=== PATIENT | female | born 1990 | race Hispanic/Latino ===

== ENCOUNTER 2017-12-24 20:42 | Emergency (ER) | payer OTHER, SELFPAY ==
[2017-12-24] MEDS ORDERED: Ketorolac Tromethamine 30 MG/ML VIAL ONE (23:05)
[2017-12-24] MEDS ORDERED: diphenhydrAMINE 50 MG/ML VIAL ONE (23:05)
[2017-12-24] MEDS ORDERED: Metoclopramide HCl 10 MG/2 ML VIAL ONE (23:05)
[2017-12-25] MEDS ORDERED: Lidocaine 1% w/Epinephrine 1:100K 20 ML VIAL ONE (00:29)
[2017-12-25] MEDS ORDERED: HYDROcodone/Acetaminophen 10/325 mg Tablet ONE (00:30)
== END 2017-12-25 00:37 | disposition home or self-care (01) ==
LOC: ERS 20:42
DX: R51 Headache (principal)
CPT/HCPCS: 96365; 96375; J1200; J1885; J2001; J2765

== ENCOUNTER 2019-05-25 10:00 | Inpatient (IN) | payer OTHER, SELFPAY ==
[2019-05-25] MEDS ORDERED: hydrALAZINE 20 MG/ML VIAL SLOW IVP PRN (11:22)
[2019-05-25] MEDS ORDERED: Promethazine HCl 25 MG/ML VIAL IM PRN (11:22)
[2019-05-25] MEDS ORDERED: Ondansetron PF 4 MG/2 ML Vial IVP PRN (11:22)
--- NOTE | 2019-05-25 11:22 | PDOC.FPROB ---
FMR OB H&P: HPI - History of Present Illness Chief Complaint: Iron Infusion History of Present Illness: Pt is a 28 yo F @ 31.2 wks by LMP with anemia of who presents for iron transfusion. She says she has had no vaginal bleeding, loss of fluid, or contractions. She endorses good movement. Primary Care Physician: KATIE OLIVAS FMR OB H&P: Current - Care : 3 Para: 2001 Gestational age: 31.2 wks Due date: 07/25/19 Dating Criteria: LMP - OB Labs Blood type: unknown RH: unknown Antibody Screen: unknown HIV: unknown RPR: unknown HepBsAg: unknown Quad screen: unknown Gonorrhea: unknown Chlamydia: unknown GBS: unknown FMR OB H&P: History - Past Medical History PMH: None - OB History OB History: Anemia of Csection with second due to concerns for baby. - Surgical History Sx History: None - Social History Social History: No history of asthma or jaundice in family. No other family medical problems. - Family History Family History: No tobacco, alcohol, or drug use. FMR OB H&P: Medications - Current Home Medications: Medication Instructions Recorded Confirmed Type Cia639/Iron Fum/Folic 1 each PO DAILY 04/05/15 05/25/19 History [ Tablet] Allergies/Adverse Reactions: Allergies Allergy/AdvReac Type Severity Reaction Status Date / Time No Known Allergies Allergy Verified 05/25/19 11:28 FMR OB H&P: ROS - Review of Systems General: denies: fever/chills Eyes: denies: vision changes ENT: denies: nasal congestion, rhinorrhea Cardiovascular: denies: chest pain Respiratory: denies: congestion, shortness of breath Gastrointestinal: denies: abdominal pain, nausea, vomiting, diarrhea Genitourinary (Female): denies: dysuria, vaginal discharge, vaginal pain, vaginal bleeding, contractions Musculoskeletal: denies: pain, tenderness Neurologic: reports: headache (Headaches are full head with pain in the neck. She was seen in pre-[facility] clinic with headache and they told her to take Tylenol. She had headache before .). denies: numbness, weakness Integumentary: denies: itching, rash Hematologic/Lymphatic: denies: prolonged or excessive bleeding, enlarged lymph nodes FMR OB H&P: Vital Signs - Maternal Vital signs: BP: 84/59, HR: 80, T: 98.1 - Heart Tones Baseline: 130 Variability: moderate Acceleration: present Deceleration: absent Category: category 1 FMR OB H&P: Physical Exam - Physical Exam General: NAD HEENT: normocephalic and atraumatic, PERRLA, MMM, conjunctiva clear, oropharynx clear, good dention Neck: supple, trachea midline, no LAD Heart: RRR, normal S1/S2 General: CTAB, no respiratory distress, good air movement, no rales/rhonchi, no wheezing Abdomen: soft, gravid, non-tender, bowel sound present Musculoskeletal: pulses present, FROM in all four extremities Neurological: cranial nerves II through XII intact Skin: no rash Lymphatic: no unusual bruising or bleeding FMR OB H&P: A/P - Problem List (1) Anemia affecting in third trimester Current Visit: Yes Status: Acute Code(s): O99.013 - ANEMIA COMPLICATING , THIRD TRIMESTER (2) Intrauterine Current Visit: No Status: Acute Code(s): Z33.1 - STATE, INCIDENTAL Disposition: Pt is a 28 yo F @ 31.2 wks by LMP with anemia of who presents for iron transfusion. 1. Anemia of * Unable to obtain records unsure of what her last H&H was * Will transfuse iron per protocol * Will give benadryl if needed for transfusion reaction 2. Intrauterine 31.2 wks * Will keep her on monitoring during transfusion Dispo: Pending transfusion Discussion: Date/Time: 05/25/19 1118 This H&P was discussed with [] and [] who agree with the above documentation and plan. Addendum - Attending - Attending Attestation Date/Time: 05/25/19 1255 I personally evaluated the patient and discussed the management with Dr. Swanson I agree with the History, Examination, Assessment and Plan documented above with any addition or exceptions noted below - 28 yo @31.2 weeks here for iron transfusion. Has anemia of unresponsive to oral iron. (+) FM. PMH/PSH/All/Meds reviewed and agree with resident's documentation. Afebrile VSS Exam repeated by me and agree with resident's documentation. A/P: 1 ) IUP @ 31.2 weeks with anemia of - start iron transfusion. Plan to d/ c home after infusion, Cat 1 FHTs
[2019-05-25 11:27] VITALS: BMI 19.9
[2019-05-25] MEDS ORDERED: diphenhydrAMINE 50 MG/ML VIAL IVP SCH (11:30)
[2019-05-25] MEDS ORDERED: Iron, Sodium Ferric Gluconate 250 MG in Sodium Chloride 0.9% 250 ML 250 ML IVPB SCH (11:45)
[2019-05-25] MEDS ORDERED: Acetaminophen 500 MG TAB PO SCH (12:00)
[2019-05-25 12:42] LABS: Hemoglobin 8.4 g/dL (12.0-16.0)
[2019-05-25] MEDS ORDERED: Iron Sucrose Complex 500 MG in Sodium Chloride 0.9% 250 ML 250 ML IVPB SCH (13:30)
[2019-05-26] MEDS ORDERED: Prenatal Vitamin 1 TAB PO SCH (09:00)
== END 2019-05-25 18:20 | disposition home or self-care (01) | DRG 833 ==
LOC: EDSTATUS 10:00 → L&D 10:22
PROVIDERS: ADMIT Family Medicine; ATTEND Family Medicine
DX: O99.013 Anemia complicating pregnancy, third trimester (principal); D64.9 Anemia, unspecified; Z3A.31 31 weeks gestation of pregnancy
CPT/HCPCS: 36415; 85014; 85018; 96365; 96366; 99283; J2916; J7050

== ENCOUNTER 2019-07-25 11:32 | Inpatient (IN) | payer OTHER, SELFPAY ==
[2019-07-25] MEDS ORDERED: Lidocaine 1% (PF) 30 ML VIAL SC PRN (12:01)
[2019-07-25] MEDS ORDERED: NS / Oxytocin 40 units/1000ml 1,000 ML IV PRN (12:01)
[2019-07-25] MEDS ORDERED: Promethazine HCl 25 MG/ML VIAL IM PRN (12:01)
[2019-07-25] MEDS ORDERED: Carboprost 250 MCG/ML AMP IM PRN (12:01)
[2019-07-25] MEDS ORDERED: Ondansetron PF 4 MG/2 ML Vial IVP PRN ×2 (12:01→16:42)
[2019-07-25] MEDS ORDERED: Butorphanol Tartrate 1 MG/ML VIAL SLOW IVP PRN (12:01)
[2019-07-25] MEDS ORDERED: hydrALAZINE 20 MG/ML VIAL SLOW IVP PRN ×2 (12:01→16:42)
[2019-07-25] MEDS ORDERED: Misoprostol 200 MCG TAB PR PRN (12:01)
[2019-07-25] MEDS ORDERED: Ibuprofen 800 MG TAB PO PRN (12:01)
[2019-07-25] MEDS ORDERED: Methylergonovine 0.2 MG/ML VIAL IM PRN ×2 (12:01→16:42)
[2019-07-25] MEDS ORDERED: NS w/ Oxytocin 10 units 500 ML IV SCH (12:15)
--- NOTE | 2019-07-25 12:18 | PDOC.FPROB ---
FMR OB H&P: HPI - History of Present Illness Chief Complaint: contractions Indentification: 28yo History of Present Illness: Presented to L&D for contractions. Denies loss of fluid, vaginal bleeding or decreased movement. 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 - Surgical History Sx History: - Social History Social History: Denies - Family History Family History: Denies FMR OB H&P: Medications - Current Home Medications: Medication Instructions Recorded Confirmed Type [id number]/Iron Fum/Folic 1 each PO DAILY 04/05/15 05/25/19 History [ Tablet] Allergies/Adverse Reactions: Allergies Allergy/AdvReac Type Severity Reaction Status Date / Time No Known Allergies Allergy Verified 05/25/19 11:28 FMR OB H&P: ROS - Review of Systems General: denies: fever/chills, weight/appetite/sleep changes Eyes: denies: eye pain, vision changes ENT: denies: nasal congestion, rhinorrhea Cardiovascular: denies: chest pain, palpitation, edema Respiratory: denies: cough, congestion Gastrointestinal: reports: nausea. denies: abdominal pain, vomiting, diarrhea, constipation, bright red blood Genitourinary (Female): reports: contractions, vaginal pressure. denies: dysuria, hematuria, vaginal discharge, vaginal pain, vaginal bleeding Musculoskeletal: denies: pain, stiffness Neurologic: denies: numbness, syncope, seizures Integumentary: denies: itching, rash Hematologic/Lymphatic: denies: prolonged or excessive bleeding, enlarged lymph nodes FMR OB H&P: Vital Signs - Heart Tones Baseline: 140 Variability: moderate Acceleration: present Deceleration: absent Category: category 1 [place] contractions every: 4-5 FMR OB H&P: Physical Exam - Physical Exam General: NAD HEENT: normocephalic and atraumatic, EOMI, MMM, grossly normal vision, grossly normal hearing Neck: supple, trachea midline Breast: symmetric Heart: RRR, normal S1/S2, no murmurs/rubs/gallops General: CTAB, no respiratory distress, good air movement, no rales/rhonchi, no wheezing Abdomen: soft, gravid Musculoskeletal: normal gait and station Neurological: cranial nerves II through XII intact Skin: no rash, good tugor Lymphatic: no unusual bruising or bleeding, no purpura Psychiatric: intact recent and remote memory, good judgement and insight, normal mood and affect - Pelvic Exam SVE: Per RN: Presentation: Cephalic FMR OB H&P: A/P - Problem List (1) Encounter for trial of labor Current Visit: Yes Status: Acute Code(s): [id number] - (2) Intrauterine Current Visit: No Status: Acute Code(s): Z33.1 - STATE, INCIDENTAL Discussion: Date/Time: 07/25/19 1215 TOLAC - 28yo @ 39.2wks EGA. - Presented to L&D at 8cm with contractions. - Patient in active labor. Will admit for delivery - Discussed pain management options, including epidural, patient elected for no epidural - IV medications only. - H/o PPH. Will monitor closely for bleeding after delivery. No PMH of HTN or asthma. - GBS negative. This H&P was discussed with Dr. Smith who agree with the above documentation and plan. Signature: Nasir ELIZONDO PGY1 Addendum - Attending - Attending Attestation Date/Time: 07/25/19 1330 I personally evaluated the patient and discussed the management with Dr. Etienne I agree with the History, Examination, Assessment and Plan documented above with any addition or exceptions noted below. presented in spontaneous labor at 8 cm. Expectant management.
[2019-07-25 12:31] LABS: Hemoglobin 11.9 g/dL (12.0-16.0); Mean Corpuscular HGB CONC 33.7 g/dL (32.0-36.0); Mean Corpuscular Volume 83.1 fL (78.0-98.0); Mean Platelet Volume 9.9 fL (7.4-10.4); Platelet Count 193 thou/uL (130-400); RBC Distribution Width 16.5 % (11.5-14.5); Red Blood Cell (RBC) Count 4.23 mill/uL (4.20-5.40); White Blood Cell (WBC) Count 9.3 thou/uL (4.8-10.8)
[2019-07-25 12:59] VITALS: BMI 23.4
[2019-07-25 13:09] LABS: Syphilis Antibody Nonreactive (Nonreactive); Syphilis Antibody Index 0.06 S/CO (<1.00 Non-Reactive)
[2019-07-25 13:10] LABS: HBSAg Index 0.19 S/CO (0-0.99); Hep B Surf Ag Non-Reactive S/CO (NonReactive)
[2019-07-25] MEDS ORDERED: Morphine 10 MG/ML VIAL ONE (14:33)
[2019-07-25] MEDS ORDERED: Clindamycin/D5W 900 MG in Premix Bag 1 BAG IVPB SCH (15:00)
--- NOTE | 2019-07-25 15:08 | PDOC.OPDEL ---
OB Operative/Delivery Note - Additional Findings/Plan Compilations/Other Findings: Vaginal Delivery note Delivering Physician: Jaimie Rai Attending Physician: Luis Consulting Physician: Low Procedure: Anesthesia: Morpine 10 mg QBL: 250 ml Pre-op Diagnosis: 1. Term intrauterine in labor 2. Hx of prior x1 Post-op Diagnosis: 1. Term intrauterine , delivered 2. same as above Indications: A 28y/o female presented in active labor. Delivery Note: This is 28y/o female @ 39.2wks who delivered a viable M infant at 14:26. Following an uneventful antepartum course, a vigorous M was delivered over an intact perineum in the occipitoanterior position. Tight nuchal cord x1, reduced. Anterior Shoulder and then remainder of the body delivered. Cord clamped and cut and cord blood collected. The cord (3 vessels) detached from the placenta. Placenta delivered manually, by Dr. Kelsey OB Hospitalist. Placenta appeared intact upon removal. Fundal massage was performed and the fundus was firm. The cervix and vagina were inspected and found to be free of lacerations. Infant went to nursery in good condition for routine care. Apgars were 8/9 at 1 & 5 minutes, respectively. Patient tolerated delivery well and went to after routine recovery/ care. Will give Gentamicin and Clindamycin for prophylaxis given extensive manipulation of the uterus. Nasir ELIZONDO PGY1 Addendum - Attending - Attending Attestation Date/Time: 07/25/19 1525 I was present for the entire delivery. Patient delivered infant with difficulty 2/2 tight nuchal cord that was reduced. During active management of third stage of labor, a cord avulsion occurred. Patient had a second IV started and Dr. Kelsey from the OB hospitalist service was called to assisted with the removal of the placenta. Placenta was removed intact with concern from vilimentous insertion and sent to path. Patient's uterus was noted to have good tone and minimal bleeding was noted coming from the uterus. She will be started on gent and clinda for endometritis PPx for 24 hrs. Will monitor closely for reoccurance of bleeding and perform a PP D&C if necessary. Patient to routine care, to well nursery.
--- NOTE | 2019-07-25 15:33 | CON ---
DATE OF CONSULTATION: 07/25/2019 TIME OF SERVICE: Approximately, 1445 hours. Ms. Drummond is a 28-year-old, prior section for TOLAC, who presented under the care of the Family Medicine [facility]. She proceeded to spontaneous vaginal delivery. I was consulted for vaginal previa with possible retained placenta. Upon presentation to the delivery room, the patient was noted to have stable vital signs. She did not have a labor epidural. Umbilical cord had detached with membranes noted. The rest of the placenta was left in situ. After gowning and gloving and exploring the vagina, the patient was noted to have an anterior placenta. The portion that was at the level of the lower uterine segment had already spontaneously from the lower uterine segment and did not seem to be involving or abnormally placented into the lower uterine segment. It seemed that there was probably 2 lobes to the uterus. Despite the lack of anesthesia, the patient was incredibly compliant and cooperative with exam. I was able to cleave the plane between the placenta and the uterus and completely remove the placenta from the uterus in what seemed to be an intact manner. It was sent for pathologic analysis. Re-exploration revealed no further membranes or placental tissue noted on exam. The patient will be observed. QBL to be calculated by nursing and will be available for consultation with [facility] if further complications are encountered. We will give the patient a dose of antibiotics per [facility] order. Job ID: [id number]
[2019-07-25] MEDS ORDERED: Benzocaine-Menthol 82.5 ML CAN TOP PRN (16:42)
[2019-07-25] MEDS ORDERED: Milk Of Magnesia 30 ML UDCUP PO PRN (16:42)
[2019-07-25] MEDS ORDERED: Bisacodyl 10 MG SUPP PR PRN (16:42)
[2019-07-25] MEDS ORDERED: Misoprostol 200 MCG TAB VAG PRN (16:42)
[2019-07-25] MEDS ORDERED: Lanolin Ointment 7 GM TUBE TOP PRN (16:42)
[2019-07-25] MEDS ORDERED: NS / Oxytocin 40 units/1000ml 1,000 ML ONE (17:03)
[2019-07-25] MEDS ORDERED: NS / Oxytocin 40 units/1000ml 1,000 ML IV SCH (18:00)
[2019-07-25] MEDS ORDERED: Ferrous Sulfate 325 MG TAB PO SCH (18:00)
[2019-07-25] MEDS: Acetaminophen/Codeine 30-300mg Tablet PO PRN (18:15)
[2019-07-25] MEDS: Ibuprofen 800 MG TAB PO SCH (20:21)
[2019-07-25] MEDS: Docusate Calcium (SURFAK) 240 MG CAP PO SCH (20:21)
[2019-07-25] MEDS: Clindamycin/D5W 900 MG in Premix Bag 1 BAG IVPB SCH (23:29)
[2019-07-26] MEDS: Ibuprofen 800 MG TAB PO SCH ×3 (05:10→20:10)
--- NOTE | 2019-07-26 07:46 | PDOC.PP ---
Post Progress Note Post Day #: 1 Subjective: Patient doing well. No concerns overnight. Patient states she is having some abdominal pain since delivery that she describes as cramping. She states she is only having a small amount of lochia. She has felt dizzy a few times when getting up to use the restroom. PO intake tolerated: yes Flatus: yes Ambulation: yes Vital Signs (12 hours) Temp Pulse Resp BP Pulse Ox 07/26/19 06:21 97.4 F L 54 L 18 89/53 L 07/26/19 05:00 98.0 F 55 L 18 87/58 L 98 07/26/19 00:00 97.9 F 55 L 18 102/58 L 98 07/25/19 21:00 98.9 F 52 L 16 102/63 99 07/25/19 20:00 97.9 F 52 L 16 107/73 99 Weight Weight 54.431 kg - Physical Examination General: NAD Deviation from normal: Bradycardia Respiratory: non-labored breathing Abdominal: + bowel sounds, lochia (minimal), no distention, appropriately TTP Fundus firm & at: Below umbilicus, off to right Skin: no rash Neurological: no gross focal deficits Psychiatric: A&Ox3, normal affect Result Diagrams: 07/25/19 12:18 Additional Labs: Post Labs Blood Type O POSITIVE 07/25/19 12:21 Hep Bs Antigen Non-Reactive S/CO (NonReactive) 07/25/19 12:18 (1) (vaginal after ) Code(s): O34.219 - MATERNAL CARE FOR UNSP TYPE SCAR FROM PREVIOUS DEL Status: Acute - Assessment/Plan Routine PP care - PP day #1 s/p - Meeting PP milestones - Manual extraction of placenta d/t cord avulsion/vasa previa - Continue IV abx for 24h due to manipulation of uterus and vagina - Lochia minimal; no significant PP bleeding - Rh positive, rubella immune Manual extraction of placenta - d/t cord avulsion vs vasa previa - Continue antibiotics for 24h PP period for ppx - Uterus appropriately TTP - Lochia minimal - Continue to monitor for s/s infection Dispo: Plan for d/c home tomorrow. Addendum - Attending - Attending Attestation Date/Time: 07/26/19 1108 I personally evaluated the patient and discussed the management with Dr. Rai I agree with the History, Examination, Assessment and Plan documented above with any addition or exceptions noted below. Normal PP exam. D/C abx at 24 hrs. likely d/c tomorrow.
[2019-07-26] MEDS ORDERED: Sodium Chloride 0.9% 10 ML ONE (08:32)
[2019-07-26] MEDS: Clindamycin/D5W 900 MG in Premix Bag 1 BAG IVPB SCH (08:34)
[2019-07-26] MEDS: Docusate Calcium (SURFAK) 240 MG CAP PO SCH ×2 (08:35→20:10)
[2019-07-26] MEDS: Prenatal Vitamin 1 TAB PO SCH (08:35)
[2019-07-26] MEDS: Ferrous Sulfate 325 MG TAB PO SCH ×2 (08:36→16:24)
[2019-07-26] MEDS: Acetaminophen/Codeine 30-300mg Tablet PO PRN (08:38)
[2019-07-26] MEDS ORDERED: Adacel (T-DAP) 0.5 ML SYRINGE IM ONE (09:00)
--- NOTE | 2019-07-27 01:38 | PDOC.PP ---
Post Progress Note Post Day #: 2 Subjective: Patient doing well. No significant overnight events. Lochia minimal. Patient still with moderate amount of vaginal pain. Ibuprofen minimally helpful. Nurses report she got dizzy with Tylenol #3. Patient states pain worse with ambulation. She does not have any significant swelling in the vaginal area. PO intake tolerated: yes Flatus: yes Ambulation: yes Vital Signs (12 hours) Temp Pulse Resp BP Pulse Ox 07/26/19 20:17 98.2 F 55 L 12 101/64 98 07/26/19 17:18 98.6 F 61 16 91/52 L 96 07/26/19 16:07 97 Weight Weight 54.431 kg - Physical Examination General: NAD Cardiovascular: no m/r/g, RRR Respiratory: clear to auscultation bilaterally, non-labored breathing Abdominal: + bowel sounds, lochia (minimal), no distention, appropriately TTP Fundus firm & at: below umbilicus Skin: no rash Neurological: no gross focal deficits Psychiatric: A&Ox3, normal affect Result Diagrams: 07/25/19 12:18 Additional Labs: Post Labs Blood Type O POSITIVE 07/25/19 12:21 Hep Bs Antigen Non-Reactive S/CO (NonReactive) 07/25/19 12:18 (1) (vaginal after ) Code(s): O34.219 - MATERNAL CARE FOR UNSP TYPE SCAR FROM PREVIOUS DEL Status: Acute - Assessment/Plan Routine PP care - PP day #2 s/p - Meeting PP milestones - Manual extraction of placenta d/t cord avulsion/vasa previa - IV abx d/c'd at 24 hours; patient doing well. No s/s infection - Lochia minimal; no significant PP bleeding - Rh positive, rubella immune Manual extraction of placenta - d/t cord avulsion vs vasa previa - IV abx d/c'd at 24 hours; no s/s infection - Uterus appropriately TTP - Lochia minimal - Vaginal pain; will try tramadol Dispo: Plan for d/c home today. Addendum - Attending - Attending Attestation Date/Time: 07/27/19 1005 I personally evaluated the patient and discussed the management with Dr. Rai. Low suspicion for pelvic hematoma or other complication. I agree with the History, Examination, Assessment and Plan documented above with any addition or exceptions noted below.
[2019-07-27] MEDS: Ibuprofen 800 MG TAB PO SCH (06:01)
[2019-07-27] MEDS ORDERED: traMADol HCl 50 MG TAB PO SCH (08:00)
[2019-07-27] MEDS: Ferrous Sulfate 325 MG TAB PO SCH (08:16)
[2019-07-27] MEDS: Docusate Calcium (SURFAK) 240 MG CAP PO SCH (08:41)
[2019-07-27] MEDS: Prenatal Vitamin 1 TAB PO SCH (08:41)
[2019-07-27 09:38] VITALS: BP 93/56; TEMP 98.2
== END 2019-07-27 13:00 | disposition home or self-care (01) | DRG 807 ==
LOC: L&D/OP 11:32 → L&D 12:58 → 3SW 18:36
PROVIDERS: ADMIT Obstetrics & Gynecology; ATTEND Obstetrics & Gynecology
PROC: 10E0XZZ Delivery of Products of Conception, External Approach (ICD-10-PCS; principal; 2019-07-25)
PROC: 10D17Z9 Manual Extraction of Products of Conception, Retained, Via Natural or Artificial Opening (ICD-10-PCS; 2019-07-25)
PROC: 10907ZC Drainage of Amniotic Fluid, Therapeutic from Products of Conception, Via Natural or Artificial Opening (ICD-10-PCS; 2019-07-25)
DX: O69.1XX0 Labor and delivery complicated by cord around neck, with compression, not applicable or unspecified (principal); Z37.0 Single live birth; Z3A.39 39 weeks gestation of pregnancy; O69.0XX0 Labor and delivery complicated by prolapse of cord, not applicable or unspecified; O34.219 Maternal care for unspecified type scar from previous cesarean delivery
CPT/HCPCS: 36415; 85027; 86780; 86850; 86900; 86901; 87340; J1580; J2270; J3490